=== PATIENT | female | born 1990 | race Caucasian/White ===

== ENCOUNTER 2024-11-26 00:14 | Emergency (ER) | payer MEDICAID ==
[~2024-11-26] VITALS: Ht 154.9 cm; Wt 70.0 kg
[2024-11-26 00:17] VITALS: O2SAT 100
[2024-11-26 00:23] VITALS: BP 130/87; PULSE 74; RESP 18; TEMP 36.9; O2SAT 100
[2024-11-26 01:05] LABS: BASOPHILS % 0.6 % (0.0-2.0); HEMOGLOBIN. 12.1 g/dL (12.0-16.0); LYMPHOCYTES % 36.2 % (20.0-50.0); MEAN CORPUSCULAR HEMOGLOBIN 29.3 pg (28.0-32.0); MEAN CORPUSCULAR HGB CONC 33.5 g/dL (31.0-37.0); MEAN CORPUSCULAR VOLUME 87.4 fL (81.0-99.0); MEAN PLATELET VOLUME 8.1 fl (7.4-10.4); MONOCYTES % 6.6 % (2.0-8.0); NEUTROPHILS % 53.6 % (40.0-76.0); PLATELET 315 x1000/uL (130-400); RED BLOOD CELL COUNT 4.12 mill/uL (4.2-5.4); RED CELL DISTRIBUTION WIDTH 13.7 % (11.6-14.6); WHITE BLOOD COUNT 7.9 x1000/uL (4.5-11.0)
[2024-11-26 01:12] LABS: CARBON DIOXIDE 25 mEq/L (21-32); CHLORIDE 106 mEq/L (98-107); POTASSIUM 3.4 mEq/L (3.5-5.1); SODIUM 140 mEq/L (136-145)
[2024-11-26 01:13] LABS: CALCIUM 9.3 mg/dL (8.7-10.4)
[2024-11-26 01:17] LABS: CREATININE 0.7 mg/dL (0.6-1.0)
[2024-11-26 01:18] LABS: GLUCOSE 93 mg/dL (70-105); UREA NITROGEN BLOOD 10 mg/dL (9-23)
[2024-11-26 01:25] LABS: TROPONIN I HIGH SENSITIVITY < 4 ng/L (3.0-34)
[2024-11-26] MEDS: ACETAMINOPHEN 500MG TABLET PO ONE (02:57)
[2024-11-26] MEDS ORDERED: NAPR-1176 MT (02:58)
== END 2024-11-26 03:15 | disposition home or self-care (01) ==
LOC: ER 00:14
DX: R07.89 Other chest pain (principal); Z98.890 Other specified postprocedural states
CPT/HCPCS: 36415; 71045; 80048; 84484; 85025; 93005; 99285